=== PATIENT | female | born 1940 | race Caucasian/White ===

== ENCOUNTER 2017-01-18 20:54 | Emergency (ER) | payer OTHER ==
[~2017-01-18] VITALS: Ht 162.6 cm; Wt 71.1 kg
[2017-01-18 21:25] LABS: HEMATOCRIT 39.1 % (36.0-46.0); MCH 28.6 PG (29.0-34.0); MCHC 33.2 G/DL (30.0-36.0); MCV 86.1 FL (83-99); MEAN PLAT.VOLUME 10.7 uM^3 (9.5-12.4); PLATELET COUNT 297 K/uL (156-360); RBC DIS.WIDTH-CV 13.1 % (11.8-14.6); RBC DIS.WIDTH-SD 40.5 % (39-53); RED BLOOD COUNT 4.54 M/uL (3.80-5.20); WHITE BLOOD COUNT 8.7 K/uL (4.1-10.2)
[2017-01-18] MEDS ORDERED: LISINOPRIL-HCT1 EACH PO (21:25)
[2017-01-18] MEDS ORDERED: ZOCOR40 MG PO (21:26)
[2017-01-18 21:33] LABS: CHLORIDE 106 mEq/L (99-109); POTASSIUM 3.3 mEq/L (3.7-5.4); SODIUM 141 mEq/L (136-147)
[2017-01-18 21:35] LABS: GLUCOSE 167 mg/dL (70-99); PROTHROMBIN TIME 10.3 (9.2-11.2); PTT 22.4 (25-32)
[2017-01-18 21:36] LABS: ANION GAP 13 MEQ/L (2-14)
[2017-01-18 21:39] LABS: GFR ESTIMATE (CALCULATED) 58 mL/min/; UREA NITROGEN (BUN) 18 mg/dL (9-23)
[2017-01-18 21:46] LABS: TROP-I INTERPRETATION NEGATIVE; TROPONIN-I < 0.01 ng/mL (0.0-0.30)
[2017-01-19] MEDS ORDERED: METOPROLOL TART25 MG PO (00:06)
[2017-01-19] MEDS ORDERED: XARELTO20 MG PO (00:06)
[2017-01-19 00:19] VITALS: BP 120/80
== END 2017-01-19 00:20 | disposition home or self-care (01) ==
LOC: EME 20:54
PROVIDERS: Emergency Medicine
DX: I48.0 Paroxysmal atrial fibrillation (principal); E78.5 Hyperlipidemia, unspecified; I10 Essential (primary) hypertension; Z88.6 Allergy status to analgesic agent
CPT/HCPCS: 71010; 80048; 84202 90; 84484; 85027; 85610; 85730; 93005; 99281; 99285; J7030